=== PATIENT | male | born 1960 | race Asian ===

== ENCOUNTER → 2019-05-01 | Outpatient (CLI) | payer BC ==
[~2019-05-01] MED LIST: ATOR10 PO
== END | disposition home or self-care (01) ==
LOC: PLD 07:42 → LAB SHORT 07:42
DX: L82.0 Inflamed seborrheic keratosis (principal)
CPT/HCPCS: 88305

== ENCOUNTER → 2019-12-24 | Day surgery (SDC) | payer BC ==
--- NOTE | 2019-12-24 11:52 | NUR ---
Dressing to procedure site clean, dry, intact with no visible drainage, swelling, erythema or bruising noted.M PT LYING ON RIGHT SIDE WITH TOWEL ROLL. PROVIDED FLUYIDS AND WARM BLANKETS.
--- NOTE | 2019-12-24 13:25 | NUR ---
Patient up to Ambulate independently. Gait steady. Discharge instructions reviewed with patient. Patient verbalizes understanding. Copy given to patient to take home. Dressing to procedure site clean, dry, intact with no visible drainage, swelling, erythema or bruising noted. ALL BELONINGS RETURNED TO PATIENT.
== END ==
LOC: US 12-03 08:00
DX: B18.1 Chronic viral hepatitis B without delta-agent (principal); E78.5 Hyperlipidemia, unspecified; K21.9 Gastro-esophageal reflux disease without esophagitis; L40.9 Psoriasis, unspecified; Z79.899 Other long term (current) drug therapy; Z86.010 Personal history of colon polyps
CPT/HCPCS: 47000; 76942

== ENCOUNTER → 2020-01-13 | Outpatient (CLI) | payer BC ==
[2020-01-16 07:10] LABS: CORONAVIRUS (COVID19) CSH-NRL Positive (Negative)
== END | disposition home or self-care (01) ==
LOC: LAB SHORT 11:55 → LAB 11:55
PROVIDERS: Physician Assistant Medical
DX: U07.1 COVID-19 (principal)
CPT/HCPCS: U0003